=== PATIENT | male | born 1985 | race Two or more races ===

== ENCOUNTER 2019-05-09 09:54 | Outpatient (CLI) | payer BC ==
[~2019-05-09 09:54] MED LIST: KETO10TA2 PO
== END 2019-05-09 10:37 | disposition home or self-care (01) ==
LOC: MRI 09:54
DX: M79.672 Pain in left foot (principal)
CPT/HCPCS: 73718

== ENCOUNTER 2025-04-20 09:25 | Emergency (ER) | payer OTHER ==
[~2025-04-20] VITALS: Ht 172.7 cm; Wt 122.5 kg
[2025-04-20 09:32] VITALS: BP 127/78; O2SAT 96
[2025-04-20] MEDS ORDERED: CELEBREX200MG PO (09:39)
[2025-04-20] MEDS ORDERED: ZANAFLEX4 MG PO (09:39)
[2025-04-20] MEDS ORDERED: KETOROLAC TROMETHAMINE 30 MG VIAL IM STA (09:45)
[2025-04-20] MEDS ORDERED: ORPHENADRINE CITRATE 100 MG TABLET PO ONE (09:45)
[2025-04-20] MEDS ORDERED: DEXAMETHASONE SODIUM PHOSPHATE 4 MG/ML VIAL IM STA (09:45)
[2025-04-20] MEDS ORDERED: DEXAMETHASONE SODIUM PHOSPHATE 4 MG/ML VIAL ONE (10:08)
[2025-04-20] MEDS ORDERED: KETOROLAC TROMETHAMINE 30 MG VIAL ONE (10:08)
[2025-04-20] MEDS ORDERED: NAPROXEN500 MG PO (12:49)
== END 2025-04-20 13:29 | disposition home or self-care (01) ==
LOC: ER 09:26
DX: M79.604 Pain in right leg (principal)